=== PATIENT | female | born 1990 | race Caucasian/White ===

== ENCOUNTER 2016-11-24 11:07 | Emergency (ER) | payer OTHER ==
[~2016-11-24] VITALS: Ht 177.8 cm; Wt 97.8 kg
[~2016-11-24 11:07] MED LIST: ADIPEX-P37.5 M1 PO; Codeine Sulfate PO; DOXYCYCLINE PO; FIORINAL WITH1 EACH; Fioricet,Esgic,Repan PO; celeXA PO
[2016-11-24 12:58] LABS: HEMATOCRIT 39.9 % (36.0-46.0); MCH 29.4 PG (29.0-34.0); MCHC 34.6 G/DL (30.0-36.0); MCV 84.9 FL (83-99); MEAN PLAT.VOLUME 11.1 uM^3 (9.5-12.4); PLATELET COUNT 131 K/uL (156-360); RBC DIS.WIDTH-SD 37.2 % (39-53); WHITE BLOOD COUNT 4.7 K/uL (4.1-10.2)
[2016-11-24 13:08] LABS: CHLORIDE 107 mEq/L (99-109); POTASSIUM 2.9 mEq/L (3.7-5.4); SODIUM 138 mEq/L (136-147)
[2016-11-24 13:10] LABS: GLUCOSE 87 mg/dL (70-99)
[2016-11-24 13:11] LABS: ANION GAP 9 MEQ/L (2-14)
[2016-11-24 13:12] LABS: TOTAL BILIRUBIN 1.3 mg/dL (0.0-1.0)
[2016-11-24 13:13] LABS: ALKALINE PHOSPHATASE 88 IU/L (3-129)
[2016-11-24 13:14] LABS: GFR ESTIMATE (CALCULATED) > 59 mL/min/
[2016-11-24 13:15] LABS: UREA NITROGEN (BUN) 5 mg/dL (9-23)
[2016-11-24 13:17] LABS: LIPASE 10 U/L (1.0-51.0)
[2016-11-24 13:23] LABS: QUANTITATIVE HCG < 4.0 MIU/ML
[2016-11-24 13:43] LABS: ADD MIUA? YES; BILIRUBIN NEGATIVE; BLOOD NEGATIVE; COLOR AMBER ((YELLOW)); GLUCOSE (STRIP) NEGATIVE; KETONES NEGATIVE; LEUKOCYTES NEGATIVE; NITRITE NEGATIVE; PROTEIN (STRIP) 30; SPECIFIC GRAVITY 1.029 (1.000-1.030); UROBILINOGEN 0.2 MG/DL (0.2-1.0)
[2016-11-24 14:29] LABS: BACTERIA NONE SEEN /HPF; EPITHELIAL CELLS RARE /HPF; MUCUS 4+ /LPF; RED BLOOD CELLS 0-5 /HPF (0-5); WHITE BLOOD CELLS 0-5 /HPF (0-5)
[2016-11-24 16:59] LABS: C DIFF TOXIN NEGATIVE (NEGATIVE)
[2016-11-24 17:00] LABS: PROBE CHECK PASS; SPECIMEN PROCESSING CONTROL PASS
[2016-11-24] MEDS ORDERED: ZOFRAN ODT4 MG PO (17:11)
[2016-11-24] MEDS ORDERED: BENTYL20 MG PO (17:11)
[2016-11-24] MEDS ORDERED: KLOR-CON M2020 MEQ PO (17:11)
[2016-11-24 17:53] VITALS: BP 109/75
== END 2016-11-24 17:54 | disposition home or self-care (01) ==
LOC: EME 11:07
PROVIDERS: Nurse Practitioner Family
DX: K52.9 Noninfective gastroenteritis and colitis, unspecified (principal); E87.5 Hyperkalemia; R74.0 Nonspecific elevation of levels of transaminase and lactic acid dehydrogenase [LDH]; E80.6 Other disorders of bilirubin metabolism; R51 Headache
CPT/HCPCS: 74177; 80053; 81003; 83690; 84702; 85027; 87493; 87506; 99281; 99284; J1200; J1885; J2765; J7030

== ENCOUNTER 2016-12-02 17:38 | Emergency (ER) | payer OTHER ==
[~2016-12-02] VITALS: Ht 177.8 cm; Wt 95.0 kg
[~2016-12-02 17:38] MED LIST changes: +BENTYL20 MG PO; +KLOR-CON M2020 MEQ PO; +ZOFRAN ODT4 MG PO
[2016-12-02 18:14] VITALS: BP 116/59
[2016-12-02 18:45] LABS: MCH 29.6 PG (29.0-34.0); MCHC 35.5 G/DL (30.0-36.0); MCV 83.5 FL (83-99); MEAN PLAT.VOLUME 10.8 uM^3 (9.5-12.4); PLATELET COUNT 300 K/uL (156-360); RBC DIS.WIDTH-CV 12.1 % (11.8-14.6); RBC DIS.WIDTH-SD 36.6 % (39-53); RED BLOOD COUNT 5.27 M/uL (3.80-5.20)
[2016-12-02 18:51] LABS: CHLORIDE 106 mEq/L (99-109); POTASSIUM 3.9 mEq/L (3.7-5.4); SODIUM 142 mEq/L (136-147)
[2016-12-02 18:54] LABS: GLUCOSE 122 mg/dL (70-99)
[2016-12-02 18:55] LABS: ANION GAP 16 MEQ/L (2-14); TOTAL BILIRUBIN 0.9 mg/dL (0.0-1.0)
[2016-12-02 18:57] LABS: ALKALINE PHOSPHATASE 155 IU/L (3-129); GFR ESTIMATE (CALCULATED) > 59 mL/min/
[2016-12-02 18:58] LABS: UREA NITROGEN (BUN) 9 mg/dL (9-23)
[2016-12-02 19:01] LABS: LIPASE 402 U/L (1.0-51.0)
[2016-12-02 19:06] LABS: QUANTITATIVE HCG < 4.0 MIU/ML
[2016-12-03] MEDS ORDERED: NORCO 5/3251 TABLET PO (14:47)
[2016-12-03] MEDS ORDERED: ZOFRAN ODT4 MG PO (14:47)
[2016-12-04] MEDS ORDERED: LOMOTIL TABLET1 EACH PO (19:50)
[2016-12-04] MEDS ORDERED: PROMETHAZINE HC25 M1 PO (19:51)
[2016-12-04] MEDS ORDERED: DEPO ESTRADIO5 MG/ML IM (19:52)
== END 2016-12-02 23:50 | disposition left against medical advice (07) ==
LOC: EME 17:38
DX: R11.2 Nausea with vomiting, unspecified (principal); R19.7 Diarrhea, unspecified; Z53.21 Procedure and treatment not carried out due to patient leaving prior to being seen by health care provider
CPT/HCPCS: 80053; 81003; 83690; 84702; 85027

== ENCOUNTER 2016-12-03 10:25 | Emergency (ER) | payer OTHER ==
[~2016-12-03] VITALS: Ht 177.8 cm; Wt 98.0 kg
[2016-12-03 13:38] LABS: HEMATOCRIT 41.9 % (36.0-46.0); MCH 29.3 PG (29.0-34.0); MCHC 34.4 G/DL (30.0-36.0); MCV 85.3 FL (83-99); MEAN PLAT.VOLUME 10.8 uM^3 (9.5-12.4); PLATELET COUNT 214 K/uL (156-360); RBC DIS.WIDTH-CV 12.4 % (11.8-14.6); RBC DIS.WIDTH-SD 37.8 % (39-53); RED BLOOD COUNT 4.91 M/uL (3.80-5.20); WHITE BLOOD COUNT 6.9 K/uL (4.1-10.2)
[2016-12-03 13:46] LABS: CHLORIDE 105 mEq/L (99-109); POTASSIUM 3.7 mEq/L (3.7-5.4); SODIUM 137 mEq/L (136-147)
[2016-12-03 13:49] LABS: ANION GAP 10 MEQ/L (2-14)
[2016-12-03 13:50] LABS: GLUCOSE 78 mg/dL (70-99)
[2016-12-03 13:51] LABS: ALKALINE PHOSPHATASE 118 IU/L (3-129)
[2016-12-03 13:52] LABS: GFR ESTIMATE (CALCULATED) > 59 mL/min/
[2016-12-03 13:53] LABS: UREA NITROGEN (BUN) 9 mg/dL (9-23)
[2016-12-03 13:55] LABS: LIPASE 130 U/L (1.0-51.0)
[2016-12-03 14:03] LABS: QUANTITATIVE HCG < 4.0 MIU/ML
[2016-12-03] MEDS ORDERED: ZOFRAN ODT4 MG PO (14:47)
[2016-12-03] MEDS ORDERED: NORCO 5/3251 TABLET PO (14:47)
[2016-12-03 14:53] LABS: ADD MIUA? YES; BILIRUBIN NEGATIVE; BLOOD NEGATIVE; COLOR AMBER ((YELLOW)); GLUCOSE (STRIP) NEGATIVE; KETONES 5; LEUKOCYTES NEGATIVE; NITRITE NEGATIVE; PROTEIN (STRIP) 100; SPECIFIC GRAVITY 1.032 (1.000-1.030); UROBILINOGEN 0.2 MG/DL (0.2-1.0)
[2016-12-03 15:03] VITALS: BP 119/81
[2016-12-03 15:07] LABS: BACTERIA NONE SEEN /HPF; EPITHELIAL CELLS RARE /HPF; MUCUS 3+ /LPF; RED BLOOD CELLS 0-5 /HPF (0-5); UNCLASSIFIED CRYSTALS 1+ /HPF; WHITE BLOOD CELLS 0-5 /HPF (0-5)
[2016-12-04] MEDS ORDERED: LOMOTIL TABLET1 EACH PO (19:50)
[2016-12-04] MEDS ORDERED: PROMETHAZINE HC25 M1 PO (19:51)
[2016-12-04] MEDS ORDERED: DEPO ESTRADIO5 MG/ML IM (19:52)
== END 2016-12-03 15:05 | disposition home or self-care (01) ==
LOC: EME 10:25
PROVIDERS: Nurse Practitioner Family
DX: R11.2 Nausea with vomiting, unspecified (principal); R19.7 Diarrhea, unspecified; R74.8 Abnormal levels of other serum enzymes; J45.909 Unspecified asthma, uncomplicated
CPT/HCPCS: 76705; 80053; 81003; 83690; 84702; 85027; 87040; 99281; 99284; J1885; J2405; J3010; J7030